=== PATIENT | male | born 1955 | race Caucasian/White ===

== ENCOUNTER 2016-07-12 20:54 | Inpatient (IN) | payer MEDICARE, BC ==
[~2016-07-12] VITALS: Ht 185.4 cm; Wt 102.5 kg
[~2016-07-12 20:54] MED LIST: BP MED
--- NOTE | 2016-07-12 21:18 | NUR ---
PT AMBULATORY TO ER BED 2 PT STATES HAS HEMMORHOIDS WITH RECTAL BLEEDING SINCE 7PM. PT AOX4 RR EVEN AND UNLABORED. NO SOB NOTED. NAD NOTED. NO NVD AT THIS TIME. PT NOT DIAPHORETIC. PT GOWNED AND PLACED ON MONITOR WAITING FOR MD ESTRADA.
--- NOTE | 2016-07-12 21:25 | NUR ---
DAVID WOLF AT BEDSIDE FOR EVAL.
--- NOTE | 2016-07-12 21:50 | NUR ---
DR. LEY AT BEDSIDE FOR EVAL.
--- NOTE | 2016-07-12 22:07 | NUR ---
CALLED LAB FOR BLOOD DRAW.
[2016-07-12 22:19] LABS: BASOPHILS % (AUTO) 0.5 % (0.0-2.0); EOSINOPHILS # (AUTO) 0.2 /CMM (0.0-0.7); HEMATOCRIT 45 % (39-51); HEMOGLOBIN 15.3 g/dL (13.5-17.5); LYMPHOCYTES # (AUTO) 1.7 /CMM (0.8-4.8); LYMPHOCYTES % (AUTO) 21.7 % (20.0-44.0); MEAN CORPUSCULAR HEMOGLOBIN 29 PG (26.0-33.0); MEAN CORPUSCULAR HGB CONC 34 g/dl (31.0-36.0); MEAN CORPUSCULAR VOLUME 85 fL (80-96); MONOCYTES # (AUTO) 0.4 /CMM (0.1-1.30); NEUTROPHILS # (AUTO) 5.6 /CMM (1.8-8.9); NEUTROPHILS % (AUTO) 69.8 % (43.0-81.0); PLATELET COUNT (AUTO) 159 /CMM (150-450); RDW COEFFICIENT OF VARIATION 14.4 (11.5-15.0); RED BLOOD CELL COUNT(AUTO) 5.23 MIL/uL (4.5-6.0)
--- NOTE | 2016-07-12 22:29 | NUR ---
Kerwin rodriguez in [facility] - 07/12/16 at [address] WILCOX SPOKE TO DAVID MORRIS REGARDING ADMISSION
--- NOTE | 2016-07-12 22:29 | NUR ---
DAVID WOLF SPOKE TO DAVID MORRIS REGARDING ADMISSION
[2016-07-12 22:32] LABS: CALCIUM, SERUM 8.4 mg/dL (8.5-10.1); CREATININE 0.9 mg/dL (0.6-1.3); POTASSIUM 3.7 mmol/L (3.5-5.1)
--- NOTE | 2016-07-12 22:38 | NUR ---
PER PT, WILL BRING MEDICATION IN
--- NOTE | 2016-07-12 22:42 | NUR ---
REPORT GIVEN TO VERN SELLERS FOR CONTINUE OF CARE.
[2016-07-12 22:45] LABS: INR 0.99 (0.87-1.13); PROTHROMBIN TIME 10.6 SECS (9.5-12.7)
--- NOTE | 2016-07-12 23:01 | NUR ---
XRAY AT BEDSIDE
--- NOTE | 2016-07-12 23:07 | NUR ---
PT TRANSFERED PER ACLS PROTOCOL.
[2016-07-12 23:10] VITALS: BP 135/87
--- NOTE | 2016-07-12 23:30 | NUR ---
RADIOSONDE OPERATOR ADMITTING NOTES: ADMITTED A 61 YO MALE PATIENT WHO WAS SEEN IN THE ER DUE TO RECTAL BLEEDING DUE TO HEMORRHOIDS. PER PATIENT, HE DROVE HIMSELF TO HOSPITAL AFTER SEEING FRESH BLOOD WHEN HE HAD A BM. PATIENT WAS BROUGHT TO TELE FLOOR VIA GURNEY, AOX4, ON ROOM AIR, BREATHING EVEN AND UNLABORED. APPEARS CALM AND IN NO DISTRESS, DENIES PAIN OR DIZZINESS AT THIS TIME. VS TAKEN AND ARE WNL. PIV OVER RAC G18 INTACT AND PATENT TO FLUSH. PROVIDED FOR COMFORT AND SAFETY. ORIENTED TO UNIT. INSTRUCTED NOT TO STRAIN WHILE HAVING BM. ON TELE MONITOR WITH SINUS RHYTHM AT RATE OF 70S. WILL CONT TO MONITOR.
[2016-07-13] MEDS ORDERED: ONDANSETRON HCL/PF 4 MG/2 ML VIAL IVP PRN
[2016-07-13] MEDS ORDERED: MAG HYDROX/AL HYDROX/SIMETH 30 ML UDC PO PRN
[2016-07-13] MEDS ORDERED: Z GUARD REMEDY 2 OZ OINT TP PRN
[2016-07-13] MEDS ORDERED: MAGNESIUM HYDROXIDE 30 ML UDC PO PRN
[2016-07-13] MEDS ORDERED: ACETAMINOPHEN 325 MG TABLET PO PRN
[2016-07-13] MEDS ORDERED: HYDROCODONE/APAP 5/325MG 1 EACH TABLET PO PRN
[2016-07-13] MEDS ORDERED: ZOLPIDEM TARTRATE 5 MG TABLET PO PRN
[2016-07-13] MEDS ORDERED: FOLI1TAB16 PO (00:10)
[2016-07-13] MEDS ORDERED: TAMS0.4C34 PO (00:10)
[2016-07-13] MEDS ORDERED: ENAL10TA PO (00:10)
[2016-07-13] MEDS ORDERED: DILT120C2 PO (00:10)
[2016-07-13] MEDS ORDERED: DOCUSATE SODIUM 100 MG CAPSULE PO ONE (00:11)
[2016-07-13] MEDS: DOCUSATE SODIUM 100 MG CAPSULE PO SCH ×2 (00:17→08:23)
[2016-07-13 02:36] LABS: BASOPHILS % (AUTO) 0.7 % (0.0-2.0); EOSINOPHILS # (AUTO) 0.3 /CMM (0.0-0.7); EOSINOPHILS % (AUTO) 3.6 % (0.0-6.0); HEMATOCRIT 43 % (39-51); HEMOGLOBIN 14.7 g/dL (13.5-17.5); LYMPHOCYTES # (AUTO) 1.9 /CMM (0.8-4.8); LYMPHOCYTES % (AUTO) 27.6 % (20.0-44.0); MEAN CORPUSCULAR HEMOGLOBIN 29 PG (26.0-33.0); MEAN CORPUSCULAR HGB CONC 34 g/dl (31.0-36.0); MEAN CORPUSCULAR VOLUME 85 fL (80-96); MONOCYTES # (AUTO) 0.5 /CMM (0.1-1.30); MONOCYTES % (AUTO) 6.5 % (2.0-12.0); NEUTROPHILS # (AUTO) 4.3 /CMM (1.8-8.9); NEUTROPHILS % (AUTO) 61.6 % (43.0-81.0); PLATELET COUNT (AUTO) 151 /CMM (150-450); RDW COEFFICIENT OF VARIATION 14.5 (11.5-15.0)
[2016-07-13 04:00] VITALS: BP 130/77
--- NOTE | 2016-07-13 05:22 | NUR ---
RN NOTES: MRSA SWAB OBTAINED FROM BOTH NARES.
[2016-07-13 06:59] VITALS: BP 131/79
--- NOTE | 2016-07-13 07:03 | NUR ---
HOOP RIVETER CLOSING NOTES: PATIENT IN BED, ASLEEP BUT EASILY AROUSABLE. ON ROOM AIR, BREATHING EVEN AND UNLABORED, APPEARS COMFORTABLE AND SLEPT THROUGH NIGHT. PIV OVER RAC G18 INTACT AND PATENT TO FLUSH. DUE MEDS GIVEN. PROVIDED FOR COMFORT AND SAFETY. WILL ENDORSE TO AM RN FOR YSABEL.
[2016-07-13 07:15] LABS: BASOPHILS % (AUTO) 0.6 % (0.0-2.0); EOSINOPHILS # (AUTO) 0.3 /CMM (0.0-0.7); EOSINOPHILS % (AUTO) 4.2 % (0.0-6.0); HEMATOCRIT 44 % (39-51); HEMOGLOBIN 14.9 g/dL (13.5-17.5); LYMPHOCYTES # (AUTO) 1.7 /CMM (0.8-4.8); LYMPHOCYTES % (AUTO) 27.8 % (20.0-44.0); MEAN CORPUSCULAR HEMOGLOBIN 30 PG (26.0-33.0); MEAN CORPUSCULAR HGB CONC 34 g/dl (31.0-36.0); MEAN CORPUSCULAR VOLUME 87 fL (80-96); MONOCYTES # (AUTO) 0.5 /CMM (0.1-1.30); MONOCYTES % (AUTO) 7.7 % (2.0-12.0); NEUTROPHILS # (AUTO) 3.7 /CMM (1.8-8.9); NEUTROPHILS % (AUTO) 59.7 % (43.0-81.0); PLATELET COUNT (AUTO) 152 /CMM (150-450); RDW COEFFICIENT OF VARIATION 14.3 (11.5-15.0); RED BLOOD CELL COUNT(AUTO) 5.05 MIL/uL (4.5-6.0); WHITE BLOOD COUNT (AUTO) 6.3 K/uL (4.3-11.0)
--- NOTE | 2016-07-13 07:20 | NUR ---
oral hygienist initial notes Received patient in bed, asleep, head of bed elevated, no SOB or distress noted. On room air and tolerated well. IV intact and patent. On tele monitor SR heart rate of 72. No signs and symptoms of pain or discomfort noted. Alert and oriented x 4, verbally responsive and able to make needs known. Kept patient clean and comfortable in bed, call light with in patient reach, will continue to monitor accordingly.
[2016-07-13 07:57] LABS: MAGNESIUM 1.8 mg/dL (1.8-2.4); PHOSPHORUS 3.4 mg/dL (2.5-4.9); POTASSIUM 3.9 mmol/L (3.5-5.1)
[2016-07-13 08:00] VITALS: BP 131/79
[2016-07-13 08:24] VITALS: BP 131/79
[2016-07-13] MEDS ORDERED: FOLIC ACID 1 MG TABLET PO SCH (09:00)
[2016-07-13] MEDS ORDERED: ENALAPRIL MALEATE (10 MG) 10 MG TABLET PO SCH (09:00)
[2016-07-13] MEDS ORDERED: TAMSULOSIN 0.4 MG CAP.SR.24H PO SCH (09:00)
[2016-07-13] MEDS ORDERED: DILTIAZEM HCL CD 120 MG PO SCH (09:00)
--- NOTE | 2016-07-13 12:55 | NUR ---
ms web design intern notes Discharge instructions given to patient and able to understand instructions. Signed discharge paper and belongings list. Discontinued IV and pressured applied to prevent bleeding. Alert and oriented x 4, verbally responsive. Refused flu and pneumonia vaccine explained the risk and benefits x 3, and still refused. Skin is intact. Ambulatory. Patient left the hospital in stable condition accompanied by kristen. No pain or discomfort noted. MD and charge nurse aware.
== END 2016-07-13 13:00 | disposition home or self-care (01) | DRG 395 ==
LOC: ER 20:54 → TELE 22:37 → MED 07-13 10:54
PROVIDERS: ADMIT Nurse Practitioner Acute Care; ATTEND Nurse Practitioner Acute Care
DX: K64.9 Unspecified hemorrhoids (principal); E78.5 Hyperlipidemia, unspecified; F17.210 Nicotine dependence, cigarettes, uncomplicated; I10 Essential (primary) hypertension; N40.0 Benign prostatic hyperplasia without lower urinary tract symptoms; Z71.6 Tobacco abuse counseling
CPT/HCPCS: 36415; 71010-TC; 80048-TC; 80061-TC; 83735-TC; 84100-TC; 85025-TC; 85730-TC; 87081-TC; A4606; Z7610

== ENCOUNTER 2018-04-17 09:47 | Emergency (ER) | payer MEDICARE, BC ==
[~2018-04-17] VITALS: Ht 185.4 cm; Wt 102.1 kg
[2018-04-17 09:47] VITALS: BP 159/108
[~2018-04-17 09:47] MED LIST changes: +DILT-32 PO; +ENAL10TA PO; +FOLI1TAB16 PO; +TAMS0.4C34 PO
--- NOTE | 2018-04-17 09:50 | NUR ---
AAOX3, CAME TO ER C/O LEFT RIB CAGE PAIN S/P SLIPPED AND FELL LAST WEDNESDAY. RR IS EVEN AND UNLABORED WITH NAD NOTED. SKIN IS WARM AND DRY. AWAITING MD FOR EVAL.
--- NOTE | 2018-04-17 09:57 | NUR ---
DR DOMINGUEZ AT FOR EVAL.
--- NOTE | 2018-04-17 10:40 | NUR ---
Patient discharged to home in stable condition. Written and verbal after care instructions given. Patient verbalizes understanding of instruction.
== END 2018-04-17 10:43 | disposition home or self-care (01) ==
LOC: ER 09:54
DX: S22.32XA Fracture of one rib, left side, initial encounter for closed fracture (principal); I10 Essential (primary) hypertension; F17.200 Nicotine dependence, unspecified, uncomplicated; W01.0XXA Fall on same level from slipping, tripping and stumbling without subsequent striking against object, initial encounter; Y93.89 Activity, other specified; Y92.89 Other specified places as the place of occurrence of the external cause; Y99.8 Other external cause status
CPT/HCPCS: 71100; 99283; A4606

== ENCOUNTER 2018-07-31 08:05 | Emergency (ER) | payer MEDICARE, MEDICAID ==
[~2018-07-31] VITALS: Ht 185.4 cm; Wt 99.8 kg
[2018-07-31 08:31] VITALS: BP 147/100
--- NOTE | 2018-07-31 08:31 | NUR ---
Patient discharged to home in stable condition. Written and verbal after care instructions given. Patient verbalizes understanding of instruction.
== END 2018-07-31 08:32 | disposition home or self-care (01) ==
LOC: ER 08:07
DX: K04.7 Periapical abscess without sinus (principal); R22.0 Localized swelling, mass and lump, head; I10 Essential (primary) hypertension; E78.5 Hyperlipidemia, unspecified; F17.200 Nicotine dependence, unspecified, uncomplicated; Z79.899 Other long term (current) drug therapy

== ENCOUNTER 2021-11-06 14:02 | Inpatient (IN) | payer MEDICARE, OTHER ==
[~2021-11-06] VITALS: Ht 185.4 cm; Wt 84.4 kg
[~2021-11-06 14:02] MED LIST changes: -ENAL10TA PO; +ENAL10TA39 PO
--- NOTE | 2021-11-06 14:03 | NUR ---
TO ER BED 13, ANUM SHETH FROM HOME ON A 5150 HOLD FOR DANGER TO HIMSELF FOR MEDICAL CLEARANCE PRIOR TO GPS ADMISSION, AAOX3, BREATHING EVEN AND NON LABORED
[2021-11-06] MEDS ORDERED: DULO60CA45 PO (14:31)
[2021-11-06] MEDS ORDERED: LOSA100T31 PO (14:31)
[2021-11-06] MEDS ORDERED: EMPA10TA PO (14:31)
[2021-11-06] MEDS ORDERED: PARO20TA7 PO (14:31)
[2021-11-06] MEDS ORDERED: FENO145T21 PO (14:31)
[2021-11-06] MEDS ORDERED: ATOR40TA PO (14:31)
[2021-11-06 15:26] LABS: BASOPHILS % (AUTO) 0.6 % (0.0-2.0); EOSINOPHILS % (AUTO) 6.1 % (0.0-6.0); HEMATOCRIT 42 % (39-51); LYMPHOCYTES # (AUTO) 1.7 K/uL (0.8-4.8); LYMPHOCYTES % (AUTO) 28.5 % (20.0-44.0); MEAN CORPUSCULAR HGB CONC 34 g/dl (31.0-36.0); MEAN CORPUSCULAR VOLUME 86 fL (80-96); MONOCYTES # (AUTO) 0.5 K/uL (0.1-1.30); MONOCYTES % (AUTO) 8.1 % (2.0-12.0); NEUTROPHILS # (AUTO) 3.4 K/uL (1.8-8.9); NEUTROPHILS % (AUTO) 56.7 % (43.0-81.0); PLATELET COUNT (AUTO) 200 K/uL (150-450); WHITE BLOOD COUNT (AUTO) 5.9 K/uL (4.3-11.0)
--- NOTE | 2021-11-06 15:34 | NUR ---
COVID SWAB DONE AND SENT TO LAB
--- NOTE | 2021-11-06 15:39 | NUR ---
URINE COLLECTED AND SENT TO LAB
[2021-11-06 15:40] LABS: CALCIUM, SERUM 9.1 mg/dL (8.5-10.1); CARBON DIOXIDE 33 mmol/L (21-32); CHLORIDE 105 mmol/L (98-107); GLUCOSE 113 mg/dL (74-106); POTASSIUM 4.4 mmol/L (3.5-5.1); SODIUM SERUM 141 mmol/L (136-145); UREA NITROGEN, BLOOD 18 mg/dL (7-18)
[2021-11-06 15:46] LABS: ALANINE AMINOTRANSFERASE 15 U/L (12-78); ALBUMIN 3.5 g/dL (3.4-5.0); ALCOHOL, BLOOD < 3 mg/dL (0-0); ALKALINE PHOSPHATASE 83 U/L (46-116); ASPARTATE AMINOTRANSFERASE 14 U/L (15-37); BILIRUBIN,DIRECT 0.2 mg/dL (0.0-0.2); BILIRUBIN,TOTAL 0.6 mg/dL (0.2-1.0); TOTAL PROTEIN, SERUM 6.8 g/dL (6.4-8.2)
[2021-11-06 16:28] LABS: BILIRUBIN,URINE NEGATIVE (NEGATIVE); COLOR,URINE YELLOW (YELLOW); LEUKOCYTE ESTERASE ,URINE NEGATIVE (NEGATIVE); NITRITE, URINE NEGATIVE (NEGATIVE); PH,URINE 5.5 (5.0-8.0); PROTEIN,URINE NEGATIVE (NEGATIVE); UGLUCOSE NEGATIVE (NEGATIVE); UROBILINOGEN,URINE 0.2 EU/dL (0.2)
[2021-11-06 18:03] LABS: BACTERIA,URINE None seen /HPF (None Seen); WBC,URINE 0-2 /HPF (0-3)
[2021-11-06 18:04] LABS: SQUAMOUS EPITHELIAL CELL,UR 0-2 /HPF (None Seen)
--- NOTE | 2021-11-06 18:20 | NUR ---
report given to jw grant. awaitng transfer to floor.
--- NOTE | 2021-11-06 18:25 | NUR ---
TRANSFERRED TO BED IN STABLE CONDITION
--- NOTE | 2021-11-06 18:57 | NUR ---
Pt. arrived in the unit via a gurney and transported by ER staff. Pt. is on [address] Leach made aware of the admission and gave orders.
[2021-11-06] MEDS ORDERED: MAG HYDROX/AL HYDROX/SIMETH 30 ML UDC PO PRN (19:00)
[2021-11-06] MEDS ORDERED: LORAZEPAM 0.5 MG TABLET PO PRN (19:00)
[2021-11-06] MEDS ORDERED: BLOOD SUGAR DIAGNOSTIC 1 EACH STRIP IN ONE (19:00)
[2021-11-06] MEDS ORDERED: MAGNESIUM HYDROXIDE 30 ML UDC PO PRN (19:00)
[2021-11-06 20:00] VITALS: BP 146/93
--- NOTE | 2021-11-06 20:29 | NUR ---
RN NOTES: RECEIVED PATIENT RESTING IN ROOM, NO S/SX OF ACUTE DISTRESS NOTED. DEPRESSED, DENIES SI/HI AT THIS TIME.ENCOURAGE TO VERBALIZED ANY FEELING OR CONCERN, SAFETY MEASURES IN PLACE. WILL CONTINUE TO MONITOR Q15MIN ROUNDS FOR SAFETY AND BEHAVIOR.
[2021-11-06 20:32] VITALS: BP 135/78
--- NOTE | 2021-11-06 21:20 | NUR ---
RN NOTES: REFUSED SKIN SKIN ASESSMENT PT. REFUSED SKIN ASSESSMENT AND PHOTOS TAKEN , PER PT. MY SKIN IS FINE , NO NEED TO BE ASSESS , PT BEHAVIOR UNCOOPERTIVE , EASILY AGITATED , ENCOURAGED X3 BUT PT. STRONGLY REFUSED.
--- NOTE | 2021-11-06 21:22 | NUR ---
RN NOTES : ADMISSION NOTES: ADMITTED THIS 66Y/O MALE PATIENT ADMIT FROM [facility]/ED , INITIALLY FROM HOME. ADMITTED TO 5150 HOLD DTS , PER HOLD PT.FEELS DEPRESSED AND HAVING SUICIDAL HAS BEEN HAVING THOUGHTS EVERYDAY AT NIGHT . UPON FACE TO FACE ASSESSMENT PATIENT IS A&O X3, DEPRESSED ,EASILY AGITATED, POOR EYE CONTACT ,DISORGNIZED ,DENIES SI /HI AT THIS TIME, PT. IS POOR HISTORIAN, POOR INSIGHT ,POOR JUDGEMENT , BOTH MD AWARE AND NOTIFIED OF THE ADMISSION, BELONGINGS CONTRABAND WERE DONE , PT. REFUSED SIGNS ADMISSION CONSENT PAPER DUE TO TIRED, PT. REFUSED INTAILLY ACCU CHECK PER PT. I AM NOT DIABETIC AND REFUSED SKIN ASESSMENT , ENCOURAGEDX3 PT. STRONGLY REFUSED ,ENCOURAGED PT. TO TAKE SHOWER, PT. RIGHTS DISCUSS BY RETAIL STOCK CLERK , PROVIDE THE PT. WITH HANDBOOK, AND MEDICATIONS GUIDE, ENVIRONMENTAL SAFETY CHECK DONE, ENCOURAGED PT. VERBALIZED ANY FEELING CONCERN TO STAFF, ORIENT TO UNIT POLICY, NO ACUTE DISTRESS NOTED,VITAL SIGNS WNL ,DENIES ANY PAIN AT THIS TIME,WILL CONTINUE TO MONITOR FOR Q15 SAFETY AND BEHAVIOR.
--- NOTE | 2021-11-06 23:07 | NUR ---
RN NOTES: PT. DANIEL MAGANA NOTIFIED ABOUT, PT ADMIT TO GPS.
--- NOTE | 2021-11-06 23:38 | NUR ---
GPS RN NOTE, PATIENT NEEDS A MEDICATION RECONCILIATION. PAGED [facility] AND INFORMED DR TOWNSEND OF MY FINDINGS. DR TOWNSEND SAID HE WILL TAKE CARE OF MY FINDINGS SOON POSSIBLE.
--- NOTE | 2021-11-07 06:58 | NUR ---
RN NOTE: ENCOURAGED PT. TO TAKE SHOWER AND CHANGE TO HOSPITAL GOWN , PT. STATES I WILL TAKE SHOWER LATER DURING DAY TIME AND CHANGE TO HOSPITAL GOWN , PER PT. I AM TIRED WANTS REST AT THIS TIME.
[2021-11-07 07:45] LABS: ALBUMIN 3.5 g/dL (3.4-5.0); BILIRUBIN,TOTAL 0.6 mg/dL (0.2-1.0); CREATININE 1.2 mg/dL (0.6-1.3); POTASSIUM 4.3 mmol/L (3.5-5.1); TOTAL PROTEIN, SERUM 7.1 g/dL (6.4-8.2)
[2021-11-07 07:46] LABS: CHOLESTEROL 144 mg/dL (<200); HDL CHOLESTEROL 43 mg/dL (40-60); LDL 74 mg/dL (0-99); TRIGLYCERIDES 134 mg/dL (30-150)
[2021-11-07 08:00] VITALS: BP 155/87
--- NOTE | 2021-11-07 09:20 | NUR ---
TATA Initial Discharge Plan: Patient resides at [place] located [address] [place] [address]; ([phone]). Pt would want to return back home upon discharge. TATA will work with the family, pt, and MD to help coordinate appropriate discharge.
--- NOTE | 2021-11-07 09:21 | NUR ---
TATA Clinical Note: Pt placed on a 5150 hold for danger to himself. Pt had suicidal thoughts at home and wanted to cut himself with using blades. He used cocaine hoping to "get a heat attack in the middle of the night". Patient resides at home located [address] [place] [id number]; ([phone]). Pt would want to return back home upon discharge. TATA will work with the family, pt, and MD to help coordinate appropriate discharge.
--- NOTE | 2021-11-07 09:23 | NUR ---
Social Work Note/Substance Abuse Intervention: Patient was provided with a brief substance abuse intervention and referred to [facility] ([phone]), [facility] ([phone]), and [facility] ([phone]) for using cocaine and smoking everyday.
[2021-11-07] MEDS: BUPROPION XL 150 MG TAB.ER.24 PO SCH (09:36)
--- NOTE | 2021-11-07 13:50 | NUR ---
TATA Family Contact: TATA contacted pt's Subhash ([phone]) and discussed treatment/discharge plan. She shared that pt has been frustrated/depressed due to financial issues and that they will possibly lose their house. stated that they are struggling as a family. stated when pt ready for dc to come back home. requested to speak to doctor. SW notified Dr. Leach. had complaints about food. SW notified charge nurse for dietitian request.
[2021-11-07 16:00] VITALS: BP 152/95
--- NOTE | 2021-11-07 18:50 | NUR ---
RN-NOTES PATIENT LYING IN BED GUARDED,CALM,NO ACUTE DISTRESS NOTED , A/O X3 ,ENCOURAGED TO PARTICIPATES WITH THE GROUP ACTIVITIES BUT PREFERS TO STAY IN THE ROOM AND REST. COMPLIANT WITH MEDICATIONS. AMBULATORY STEADY GAIT.ALL NEEDS ATTENDED AND ANTICIPATED. WILL ENDORSE TO INCOMING NURSE FOR CONTINUITY OF CARE.
--- NOTE | 2021-11-07 20:37 | NUR ---
RN NOTES: PATIENT RESTING IN ROOM, NO S/SX OF ACUTE DISTRESS NOTED. DEPRESSED,GUARDED DENIES SI/HI AT THIS TIME.ENCOURAGE TO VERBALIZED ANY FEELING OR CONCERN,AND ENCOURAGED TO PARTICIPATES GROUP ACTIVITIES, SAFETY MEASURES IN PLACE. WILL CONTINUE TO MONITOR Q15MIN ROUNDS FOR SAFETY AND BEHAVIOR.
[2021-11-07 20:39] VITALS: BP 160/88
[2021-11-07] MEDS: ATORVASTATIN 40 MG TABLET PO SCH (21:22)
[2021-11-07] MEDS: ACETAMINOPHEN 325 MG TABLET PO PRN (23:14)
--- NOTE | 2021-11-07 23:15 | NUR ---
RN NOTES: PT. C/O HEADACHE PRN TYLENOL 650 MG PO GIVEN ,PER PT. REQUEST,WILL CONTINUE TO MONITOR.
--- NOTE | 2021-11-08 07:44 | NUR ---
RN NOTE RECEIVED PT ASLEEP IN BED, RESPONSIVE TO STIMULI. IN ROOM AIR. NOT IN DISTRESS. SAFETY MEASURES FOLLOWED. NO COMPLAINTS OF PAIN AT THIS TIME. WILL CONT TO MONITOR.
[2021-11-08 08:00] VITALS: BP 161/88
[2021-11-08] MEDS ORDERED: JARDIANCE 10 MG PO SCH (09:00)
[2021-11-08] MEDS: TAMSULOSIN 0.4 MG CAP.SR.24H PO SCH (09:08)
[2021-11-08] MEDS: BUPROPION XL 150 MG TAB.ER.24 PO SCH (09:08)
[2021-11-08] MEDS: FENOFIBRATE NANOCRYS (145 MG) 145 MG TABLET PO SCH (09:08)
[2021-11-08] MEDS: DILTIAZEM HCL CD 180 MG PO SCH (09:09)
[2021-11-08] MEDS: LOSARTAN POTASSIUM 50 MG TABLET PO SCH (09:09)
[2021-11-08] MEDS: ACETAMINOPHEN 325 MG TABLET PO PRN ×3 (09:18→22:45)
[2021-11-08] MEDS: NICOTINE PATCH (21MG) 21 MG PATCH.TD24 TD SCH (14:23)
[2021-11-08 16:00] VITALS: BP 138/79
--- NOTE | 2021-11-08 18:16 | NUR ---
RN NOTE PT RESTING IN BED. VISITED BY FAMILY THIS AM. NOT IN DISTRESS. NO THOUGHTS OF SUICIDAL IDEATION/ATTEMPTS THIS SHIFT. COMPLIANT WITH MEDS AND CARE. V/S STABLE. WILL CONT TO MONITOR.
--- NOTE | 2021-11-08 20:11 | NUR ---
RN NOTES: PATIENT WALKING IN HALLWAY, NO S/SX OF ACUTE DISTRESS NOTED. CALM COOPERTIVE, DENIES SI/HI AT THIS TIME.ENCOURAGE TO VERBALIZED ANY FEELING OR CONCERN,AND ENCOURAGED TO ATTEND GROUP ACTIVITIES, SAFETY MEASURES IN PLACE. WILL CONTINUE TO MONITOR Q15MIN ROUNDS FOR SAFETY AND BEHAVIOR.
[2021-11-08 21:00] VITALS: BP 146/84
[2021-11-08] MEDS: ATORVASTATIN 40 MG TABLET PO SCH (21:03)
[2021-11-08] MEDS: ZOLPIDEM TARTRATE 5 MG TABLET PO PRN (21:57)
--- NOTE | 2021-11-08 21:59 | NUR ---
RN NOTES: INSOMNIA PT. C/O UNABLE TO SLEEP , PRN AMBIEN 5MG PO GIVEN PER PT. REQUEST, WILL CONTINUE TO MONITOR.
[2021-11-09 08:00] VITALS: BP 144/89
[2021-11-09] MEDS: LOSARTAN POTASSIUM 50 MG TABLET PO SCH (08:38)
[2021-11-09] MEDS: TAMSULOSIN 0.4 MG CAP.SR.24H PO SCH (08:38)
[2021-11-09] MEDS: BUPROPION XL 150 MG TAB.ER.24 PO SCH (08:38)
[2021-11-09] MEDS: FENOFIBRATE NANOCRYS (145 MG) 145 MG TABLET PO SCH (08:38)
[2021-11-09] MEDS: DILTIAZEM HCL CD 180 MG PO SCH (08:38)
--- NOTE | 2021-11-09 09:46 | NUR ---
RN-CO: PATIENT DENIED PAIN AND DISCOMFORTS, HE STATED " I AM FEELING A LOT BETTER ACTUALLY." HIS AFFECT IS APPROPRIATE , HE IS COMPLIANT WITH MEDICATIONS. I WILL CONTINUE TO MONITOR.
[2021-11-09] MEDS: NICOTINE PATCH (21MG) 21 MG PATCH.TD24 TD SCH (14:35)
[2021-11-09 16:00] VITALS: BP 136/80
[2021-11-09] MEDS: ACETAMINOPHEN 325 MG TABLET PO PRN (17:22)
--- NOTE | 2021-11-09 17:32 | NUR ---
RN-CO: TYLENOL 650 MG PO GIVEN FOR C/O TOOTHACHE 07/25.
[2021-11-09 19:55] VITALS: BP 144/86
[2021-11-09 20:32] VITALS: BP 144/86
[2021-11-09] MEDS: ATORVASTATIN 40 MG TABLET PO SCH (21:10)
[2021-11-09] MEDS: ZOLPIDEM TARTRATE 5 MG TABLET PO PRN (21:10)
--- NOTE | 2021-11-09 21:11 | NUR ---
RN NOTE: INSOMNIA PATIENT C/O INABILITY TO SLEEP AND REQUESTED TO TAKE SLEEPING MEDICINE. PRN AMBIEN 5 MG PO ADMINISTERED. WILL CONTINUE TO MONITOR.
--- NOTE | 2021-11-09 22:35 | NUR ---
RN NOTE: C/O TOOTHACHE PATIENT VERBALIZED C/O TOOTH ACHE AND STATED THAT IBUPROFEN HELPS HIM WITH TOOTH ACHE AND PREFERS TO TAKE IT AT THIS TIME DUE TO C/O TOOTH ACHE 05/25. CALLED AND NOTIFIED DR. KEYSHA TOWNSEND, RECEIVED NEW ORDER OF IBUPROFEN 600 MG PO Q8H PRN FOR MODERATED PAIN. ORDER NOTED AND CARRIED OUT. CALLED AND NOTIFIED [facility] TO VERIFY NEW ORDER. WILL ADMINISTER MEDICATION ONCE ORDER IS VERIFIED BY PHARMACY.
[2021-11-09] MEDS: IBUPROFEN 600 MG TABLET PO PRN (22:42)
--- NOTE | 2021-11-09 22:45 | NUR ---
RN NOTE: TOOTHACHE PATIENT C/O TOOTHACHE 06/24 AND WANTED TO TAKE MOTRIN AT THIS TIME. PRN IBUPROFEN 600 MG PO ADMINISTERED. WILL CONTINUE TO MONITOR FOR ANY CHANGES.
[2021-11-10 08:00] VITALS: BP 139/80
[2021-11-10] MEDS: TAMSULOSIN 0.4 MG CAP.SR.24H PO SCH (08:50)
[2021-11-10] MEDS: DILTIAZEM HCL CD 180 MG PO SCH (08:52)
[2021-11-10] MEDS: LOSARTAN POTASSIUM 50 MG TABLET PO SCH (08:52)
[2021-11-10] MEDS: BUPROPION XL 150 MG TAB.ER.24 PO SCH (08:53)
[2021-11-10] MEDS: FENOFIBRATE NANOCRYS (145 MG) 145 MG TABLET PO SCH (08:53)
--- NOTE | 2021-11-10 09:19 | NUR ---
TATA Coordination of Care: Pt will follow up with (Caddie Supervisor) Dr. Del Rio located at [address] [facility] [address], [place] [address]; ([phone]) who will monitor and provide psychotropic medications on November 13 at 11:45AM, scheduled by Alysha edi programmer analyst.
[2021-11-10] MEDS: NICOTINE PATCH (21MG) 21 MG PATCH.TD24 TD SCH (15:25)
[2021-11-10 16:00] VITALS: BP 126/68
[2021-11-10] MEDS: IBUPROFEN 600 MG TABLET PO PRN (17:35)
--- NOTE | 2021-11-10 17:35 | NUR ---
PT C/O HEADACHE 09/24 WILL CONTINUE TO MONITOR .
[2021-11-10 20:00] VITALS: BP 126/79
[2021-11-10] MEDS: ATORVASTATIN 40 MG TABLET PO SCH (21:09)
[2021-11-10] MEDS: ZOLPIDEM TARTRATE 5 MG TABLET PO PRN (21:10)
--- NOTE | 2021-11-10 21:11 | NUR ---
RN NOTE: INSOMNIA PATIENT C/O INABILITY TO SLEEP AND INSISTED TO TAKE SLEEPING MEDICINE AT THIS TIME. PRN AMBIEN 5 MG PO ADMINISTERED ORDERED. WILL CONTINUE TO MONITOR.
[2021-11-10 22:52] VITALS: BP 126/79
[2021-11-11 08:00] VITALS: BP 156/81
--- NOTE | 2021-11-11 08:04 | NUR ---
SW Discharge Note: Patient will [place] [address] [place] [address]; ([phone]). Patients Subhash ([phone]) will sisal picker pt at 11:30AM. Pt is alert and oriented x3. Pt denies suicidal or homicidal ideation. Pt denies visual/auditory hallucinations. Pt happy to be going back home. Pts Subhash ([phone]) is aware and agreeable. Pt will follow up with (Pattern And Chain Maker) Dr. Del Rio located at [address] [facility] [address]; ([phone]) who will monitor and provide psychotropic medications on November 13 at 11:45AM, scheduled by [facility] legal receptionist.
[2021-11-11] MEDS: DILTIAZEM HCL CD 180 MG PO SCH (09:16)
[2021-11-11] MEDS: FENOFIBRATE NANOCRYS (145 MG) 145 MG TABLET PO SCH (09:16)
[2021-11-11] MEDS: BUPROPION XL 150 MG TAB.ER.24 PO SCH (09:16)
[2021-11-11] MEDS: TAMSULOSIN 0.4 MG CAP.SR.24H PO SCH (09:16)
[2021-11-11 09:17] VITALS: BP 156/81
[2021-11-11] MEDS: LOSARTAN POTASSIUM 50 MG TABLET PO SCH (09:17)
[2021-11-11] MEDS: IBUPROFEN 600 MG TABLET PO PRN (09:20)
--- NOTE | 2021-11-11 09:20 | NUR ---
PT C/O toothache 09/24 medicated with Motrin 600mg WILL CONTINUE TO MONITOR .
--- NOTE | 2021-11-11 11:30 | NUR ---
Patient discharged home in stable condition.Compliant with medications ,cooperative with treatment plans Patient denies SI/HI/AVH Behavior improved ,psychiatric tx plans met ,medical tx plans differed for for continual monitoring .Educated pt about after care plan (Exit -care)and copy provided Returned personal belongings to patient med list and prescription given and explained to patient able to verbalize understanding.Vs stable no c/o pain .Patient seen by and with discharge orders .Patient discharge at 1130 with his .
== END 2021-11-11 11:30 | disposition home or self-care (01) | DRG 885 ==
LOC: ER 14:02 → GPS 16:11
PROVIDERS: ADMIT Psychiatry & Neurology Psychiatry; ATTEND Internal Medicine
DX: F33.2 Major depressive disorder, recurrent severe without psychotic features (principal); R45.851 Suicidal ideations; F29 Unspecified psychosis not due to a substance or known physiological condition; I10 Essential (primary) hypertension; E78.5 Hyperlipidemia, unspecified; K57.90 Diverticulosis of intestine, part unspecified, without perforation or abscess without bleeding; Z79.899 Other long term (current) drug therapy; F17.200 Nicotine dependence, unspecified, uncomplicated; F14.10 Cocaine abuse, uncomplicated; Z90.49 Acquired absence of other specified parts of digestive tract; Z98.890 Other specified postprocedural states; F10.11 Alcohol abuse, in remission
CPT/HCPCS: 36415; 80048-TC; 80053-TC; 80061-TC; 80076-TC; 81001; 85025-TC; 87081-TC; 97116-TC; 97530-TC; C9803; G0480

== ENCOUNTER 2023-05-07 19:21 | Emergency (ER) | payer MEDICARE, OTHER ==
[~2023-05-07] VITALS: Ht 185.4 cm; Wt 91.6 kg
[~2023-05-07 19:21] MED LIST changes: +ATOR40TA PO; -BP MED; +EMPA10TA PO; -ENAL10TA39 PO; +FENO145T21 PO; -FOLI1TAB16 PO; +LOSA100T31 PO
[2023-05-07 19:54] VITALS: TEMP 98
[2023-05-07] MEDS ORDERED: SULF1TAB48 PO (20:13)
[2023-05-07] MEDS ORDERED: CEPH500C2 PO (20:13)
[2023-05-07 20:53] VITALS: BP 129/85; O2SAT 97
== END 2023-05-07 20:54 | disposition home or self-care (01) ==
LOC: ER 19:26
DX: L03.031 Cellulitis of right toe (principal); I10 Essential (primary) hypertension; E78.5 Hyperlipidemia, unspecified; Z90.89 Acquired absence of other organs; Z79.899 Other long term (current) drug therapy

== ENCOUNTER 2024-03-21 17:27 | Emergency (ER) | payer MEDICARE, OTHER ==
[~2024-03-21] VITALS: Ht 182.9 cm; Wt 93.0 kg
[~2024-03-21 17:27] MED LIST changes: +CEPH500C2 PO; +SULF1TAB48 PO
[2024-03-21 19:14] VITALS: BP 160/100; TEMP 98.5; O2SAT 98
== END 2024-03-21 19:15 | disposition home or self-care (01) ==
LOC: ER 17:33
DX: F10.10 Alcohol abuse, uncomplicated (principal); E78.5 Hyperlipidemia, unspecified; F17.200 Nicotine dependence, unspecified, uncomplicated; I10 Essential (primary) hypertension; Z79.84 Long term (current) use of oral hypoglycemic drugs; Z79.899 Other long term (current) drug therapy; Z90.49 Acquired absence of other specified parts of digestive tract